=== PATIENT | female | born 1965 | race Caucasian/White ===

== ENCOUNTER 2024-03-11 08:00 | Day surgery (SDC) | payer OTHER ==
[2024-03-11] MEDS: Lactated Ringers 1,000 ML IV SCH (08:35)
[2024-03-11] MEDS ORDERED: Propofol 200 MG/20 ML SDV ONE ×2 (08:50)
[2024-03-11] MEDS ORDERED: fentaNYL 100 MCG/2 ML SDV ONE (08:51)
[2024-03-11] MEDS ORDERED: Midazolam 1 MG/ML 2 ML SDV ONE (08:51)
[2024-03-11] MEDS ORDERED: Lidocaine 2% 5 ML SDV ONE (08:51)
[2024-03-11 10:42] VITALS: BP 118/70; PULSE 68
== END 2024-03-11 10:55 | disposition home or self-care (01) ==
LOC: JD.SDS 08:00
PROVIDERS: ATTEND Surgery
DX: K29.51 Unspecified chronic gastritis with bleeding (principal); K63.5 Polyp of colon; K44.9 Diaphragmatic hernia without obstruction or gangrene; K64.8 Other hemorrhoids; E78.2 Mixed hyperlipidemia; Z79.899 Other long term (current) drug therapy; Z88.8 Allergy status to other drugs, medicaments and biological substances
CPT/HCPCS: 43239; 45380; J2250; J2704; J3010; J7120; 00813; J3490